=== PATIENT | female | born 1980 | race Caucasian/White ===

== ENCOUNTER 2022-05-02 20:27 | Emergency (ER) | payer BC ==
[~2022-05-02] VITALS: Ht 152.4 cm; Wt 98.9 kg
--- NOTE | 2022-05-02 21:00 | NUR ---
Pt refused bloodwork, made aware.
[2022-05-02 21:15] LABS: ABG BASE EXCESS -0.9 mmol/L; ABG HCO3 22.4 mmol/L; ABG PCO2 33.3 mmHg (35.0-45.0); ABG PH 7.445 (7.350-7.450); ABG PO2 79.7 mmHg (75.0-100.0); ABG SITE LEFT RADIAL; ABG TOTAL HEMOGLOBIN 14.5 G/dL (12.0-16.0); COHb 3.2 % (0.5-1.5); O2Hb 93.1 % (94.0-97.0); VENT MODE RA
--- NOTE | 2022-05-02 22:02 | NUR ---
Patient does not wish to proceed with medical care recommended by Dr. Hahn. Patient given information related to possible complications, up to and including , which could occur as a result of leaving the hospital at this time. Patient verbalizes understanding of risks involved due to leaving against medical advice. Patient has signed AMA form.
[2022-05-02 23:50] VITALS: BP 116/77
== END 2022-05-02 23:50 | disposition left against medical advice (07) ==
LOC: ER 20:31
DX: R25.2 Cramp and spasm (principal); F41.9 Anxiety disorder, unspecified; F17.210 Nicotine dependence, cigarettes, uncomplicated; Z88.8 Allergy status to other drugs, medicaments and biological substances; Z86.39 Personal history of other endocrine, nutritional and metabolic disease; F15.11 Other stimulant abuse, in remission; F11.11 Opioid abuse, in remission
CPT/HCPCS: 36600; A4663